=== PATIENT | female | born 1985 | race African-American/Black ===

== ENCOUNTER 2018-11-27 07:00 | Emergency (ER) | payer SELFPAY ==
[~2018-11-27] VITALS: Ht 170.2 cm; Wt 82.0 kg
[2018-11-27 07:13] VITALS: BP 134/78
== END 2018-11-27 08:42 | disposition home or self-care (01) ==
LOC: ER 07:00
DX: B02.9 Zoster without complications (principal); F99 Mental disorder, not otherwise specified; Z88.0 Allergy status to penicillin
CPT/HCPCS: 99283